=== PATIENT | male | born 1960 | race Caucasian/White ===

== ENCOUNTER 2020-06-26 16:16 | Outpatient (REF) | payer BC, SELFPAY ==
--- NOTE | ~2020-06-26 | XR_ITS ---
EXAMINATION: XR FOOT, LEFT CLINICAL INFORMATION: Heel pain. COMPARISON: None TECHNIQUE: AP, lateral, and oblique views of the left foot. FINDINGS: Small plantar calcaneal spur. Small distal Achilles tendon calcification/insertional enthesopathy. No acute calcaneal fractures seen. On the AP projections, there is a curvilinear sclerosis in the subchondral region of the 1st metatarsal head. This of uncertain etiology, could be related to overlapping densities versus other etiologies such as avascular necrosis. 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 No acute fractures otherwise seen. XR/XR foot LT min 3V IMPRESSION: 1. Calcaneal spurring. 2. Curvilinear sclerosis in the subchondral region of the 1st metatarsal head. This could be related to sequela overlapping densities versus other etiology such as avascular necrosis. Further evaluation with CT or MRI could be considered. 3. 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
== END 2020-06-26 16:17 | disposition home or self-care (01) ==
LOC: HO.XRAY 16:16
PROVIDERS: PCP Internal Medicine; Visit Provider Internal Medicine
DX: M79.671 Pain in right foot (principal)
CPT/HCPCS: 73630

== ENCOUNTER 2021-01-14 11:26 | Outpatient (REF) | payer BC, SELFPAY ==
[2021-01-14 11:37] LABS: MANUAL DIFF FLAG NO
[2021-01-14 12:13] LABS: Basophils Percent Auto 0.5 % (0-2); Eosinophils Absolute Auto 0.2 X10*3/uL (0.0-0.4); Eosinophils Percent Auto 2.3 % (0-4); Hemoglobin 16.2 g/dl (14.0-18.0); Imm Gran Abs Auto 0.02 X10*3/uL (0.00-0.03); Imm Gran Pct Auto 0.3 % (0.0-0.4); Lymphocytes Absolute Auto 2.4 X10*3/uL (1.2-4.9); Lymphocytes Percent Auto 35.6 % (20-40); Mean Corpuscular HGB Conc 33.1 g/dl (31.0-36.0); Mean Corpuscular Hemoglobin 30.7 pg (27.0-33.0); Mean Corpuscular Volume 92.8 fL (80.0-98.0); Mean Platelet Volume 10.1 fL (9.4-12.4); Monocytes Absolute Auto 0.8 X10*3/uL (0.1-1.2); Monocytes Percent Auto 11.7 % (2-11); Neutrophils Absolute Auto 3.3 x10*3/uL (2.0-8.3); Neutrophils Percent Auto 49.6 % (45-73); Platelet Count 313 X10*3/uL (160-400); Red Blood Count 5.28 X10*6/uL (4.60-5.80); Red Cell Distribution Width 11.9 % (11.0-16.0); White Blood Count 6.7 X10*3/uL (4.8-10.8)
[2021-01-14 13:03] LABS: Alanine Aminotransferase 24 U/L (0-40); Albumin Level 4.5 g/dL (3.5-5.0); Alkaline Phosphatase 59 U/L (39-117); Anion Gap 12 (12-20); Aspartate Amino Transferase 23 U/L (5-37); Bilirubin Total 1.8 mg/dL (0.0-1.0); Blood Urea Nitrogen 21 mg/dL (9-16); Calcium 9.5 mg/dL (8.4-10.2); Carbon Dioxide 29 mmol/L (22-29); Chloride 105 mmol/L (96-108); Cholesterol 169 mg/dL; Estimated Glomerular Filt Rate > 60; Glucose Fasting 96 mg/dL (60-99); HDL Cholesterol 54 mg/dL; LDL Cholesterol Calculated 95 mg/dl; Potassium 4.8 mmol/L (3.3-5.1); Sodium 141 mmol/L (135-145); Total Protein 7.1 g/dL (6.5-8.0); Triglycerides 101 mg/dL
[2021-01-14 13:07] LABS: Prostate Specific Antigen 0.41 ng/mL (<0.05-4.0)
== END 2021-01-14 11:27 | disposition home or self-care (01) ==
LOC: HO.LAB 11:26
PROVIDERS: PCP Internal Medicine; Visit Provider Internal Medicine
DX: Z00.00 Encounter for general adult medical examination without abnormal findings (principal); Z12.5 Encounter for screening for malignant neoplasm of prostate
CPT/HCPCS: 36415; 80053; 80061; 84153; 85025

== ENCOUNTER 2021-05-18 10:22 | Outpatient (REF) | payer BC, SELFPAY ==
--- NOTE | ~2021-05-18 | XR_ITS ---
EXAMINATION: XR KNEE, RIGHT CLINICAL INFORMATION: Right knee pain. COMPARISON: 07/06/2007 and 07/02/2007. TECHNIQUE: 4 views of the right knee. FINDINGS: There is no evidence of acute fracture or dislocation of the right knee. There is a 5 x 3 mm calcific density seen about the peripheral aspect of the medial joint line posteriorly and may represent a loose body. No definite donor site is appreciated. The medial and lateral joint space compartments appear maintained. There is some narrowing of the medial facet joint of the patellofemoral joint. There are changes of [place]-Schlatter's disease seen about the tibial tubercle. There is spurring about the patellofemoral joint with a small right knee effusion. Patella spurs at insertion of the quadriceps tendon is noted. XR/XR knee RT 4V IMPRESSION: Probable loose body posterior medial joint space. Patellofemoral joint degenerative change primarily involving the medial facet. Small knee effusion.
--- NOTE | ~2021-05-18 | US_ITS ---
EXAMINATION: ULTRASOUND EXTREMITY NONVASCULAR CLINICAL INFORMATION: Fullness behind right knee. COMPARISON: None. TECHNIQUE: Limited ultrasound imaging through the right posterior knee was performed. FINDINGS: There is anechoic fluid seen posterior to right popliteal fossa measuring 3.6 x 1.9 x 1.4 cm. Anechoic area also seen in the right suprapatellar space extending to the lateral joint space with echogenic debris suggestive of complex fluid. US/US extremity nonvascular IMPRESSION: Popliteal fossa cyst and suprapatellar complex effusion.
== END 2021-05-18 10:23 | disposition home or self-care (01) ==
LOC: HO.US 10:22
PROVIDERS: PCP Internal Medicine; Visit Provider Internal Medicine
DX: R29.898 Other symptoms and signs involving the musculoskeletal system (principal); M25.561 Pain in right knee
CPT/HCPCS: 73564; 76882

== ENCOUNTER 2021-05-18 10:28 | Outpatient (REF) | payer BC, SELFPAY | END 2021-05-18 10:29 | disposition home or self-care (01) | LOC: HO.US 10:28 | PROVIDERS: PCP Internal Medicine; Visit Provider Internal Medicine | DX: Z13.89 Encounter for screening for other disorder (principal) ==

== ENCOUNTER → 2021-05-31 12:24 | Outpatient (BNVA) | payer BC, SELFPAY | PROVIDERS: PCP Internal Medicine; Visit Provider Physician Assistant | DX: M17.11 Unilateral primary osteoarthritis, right knee (principal) | CPT/HCPCS: 20610; J1040 ==

== ENCOUNTER → 2021-09-15 10:39 | Outpatient (REF) | payer BC, SELFPAY | LOC: HO.SL 10:39 | PROVIDERS: PCP Internal Medicine; Visit Provider Internal Medicine | DX: R06.83 Snoring (principal) | CPT/HCPCS: 95806 ==

== ENCOUNTER 2022-01-05 09:09 | Outpatient (REF) | payer BC, SELFPAY ==
[2022-01-05 09:32] LABS: MANUAL DIFF FLAG NO
[2022-01-05 10:15] LABS: Basophils Percent Auto 0.4 % (0-2); Eosinophils Absolute Auto 0.1 X10*3/uL (0.0-0.4); Eosinophils Percent Auto 1.5 % (0-4); Hematocrit 46.5 % (42.0-52.0); Hemoglobin 15.3 g/dl (14.0-18.0); Imm Gran Abs Auto 0.03 X10*3/uL (0.00-0.03); Imm Gran Pct Auto 0.4 % (0.0-0.4); Lymphocytes Absolute Auto 2.4 X10*3/uL (1.2-4.9); Lymphocytes Percent Auto 33.7 % (20-40); Mean Corpuscular HGB Conc 32.9 g/dl (31.0-36.0); Mean Corpuscular Hemoglobin 30.1 pg (27.0-33.0); Mean Corpuscular Volume 91.5 fL (80.0-98.0); Mean Platelet Volume 9.8 fL (9.4-12.4); Monocytes Absolute Auto 0.8 X10*3/uL (0.1-1.2); Monocytes Percent Auto 10.4 % (2-11); Neutrophils Absolute Auto 3.9 x10*3/uL (2.0-8.3); Neutrophils Percent Auto 53.6 % (45-73); Platelet Count 297 X10*3/uL (160-400); Red Blood Count 5.08 X10*6/uL (4.60-5.80); White Blood Count 7.2 X10*3/uL (4.8-10.8)
[2022-01-05 10:30] LABS: Alanine Aminotransferase 21 U/L (0-40); Albumin Level 4.4 g/dL (3.5-5.0); Alkaline Phosphatase 61 U/L (39-117); Anion Gap 12 (12-20); Aspartate Amino Transferase 23 U/L (5-37); Bilirubin Total 1.8 mg/dL (0.0-1.0); Blood Urea Nitrogen 12 mg/dL (9-16); Calcium 9.6 mg/dL (8.4-10.2); Carbon Dioxide 29 mmol/L (22-29); Chloride 104 mmol/L (96-108); Cholesterol 157 mg/dL; Estimated Glomerular Filt Rate > 60; Glucose Random 95 mg/dL (60-115); HDL Cholesterol 48 mg/dL; LDL Cholesterol Calculated 80 mg/dl; Potassium 4.3 mmol/L (3.3-5.1); Sodium 141 mmol/L (135-145); Total Protein 6.9 g/dL (6.5-8.0); Triglycerides 146 mg/dL
[2022-01-05 11:04] LABS: Prostate Specific Antigen 0.35 ng/mL (<0.05-4.0)
== END 2022-01-05 09:10 | disposition home or self-care (01) ==
LOC: HO.LAB 09:09
PROVIDERS: PCP Internal Medicine; Visit Provider Internal Medicine
DX: Z00.00 Encounter for general adult medical examination without abnormal findings (principal); Z12.5 Encounter for screening for malignant neoplasm of prostate
CPT/HCPCS: 36415; 80053; 80061; 84153; 85025

== ENCOUNTER 2022-05-11 13:09 | Outpatient (REF) | payer BC, SELFPAY | END 2022-05-11 13:10 | disposition home or self-care (01) | LOC: HO.LNP 13:09 | PROVIDERS: PCP Internal Medicine; Referring Provider Internal Medicine; Visit Provider Surgery | DX: L72.11 Pilar cyst (principal) | CPT/HCPCS: 11442; 88304 ==

== ENCOUNTER → 2022-05-19 09:21 | Outpatient (BNVA) | payer BC, SELFPAY | PROVIDERS: PCP Internal Medicine; Visit Provider Surgery | DX: Z13.89 Encounter for screening for other disorder (principal) ==

== ENCOUNTER 2022-05-30 07:03 | Day surgery (SDC) | payer BC, SELFPAY ==
[2022-05-30 07:08] VITALS: BMI 28.1
[2022-05-30 07:40] VITALS: BP 126/74; PULSE 66; RESP 20; TEMP 36.1; O2SAT 98
--- NOTE | 2022-05-30 07:50 | PC.NURSE ---
no meds taken today
[2022-05-30] MEDS: Lactated Ringers 1,000 ML 50 ML IVCONT (08:04)
--- NOTE | 2022-05-30 08:05 | HO.ANESPROP2 ---
HPI - Anesthesia Eval Consult details Narrative: for screening colonoscopy PMFSH Active Problems Active Problems: All Active Problems (Updated 05/30/22 @ 07:50 by Karon Carpneter RN) Osteoarthritis of right knee (Acute) Pilar cyst of scalp (Acute) Past Medical History Medical History (Updated 05/27/22 @ 11:09 by Yudith England RN) Deviated nasal septum (~2012) High cholesterol Plantar fasciitis Symptomatic varicose veins Family History Family history of problems with anesthesia: No Surgical History Surgical History (Updated 05/30/22 @ 07:50 by Karon Carpenter RN) H/O excision of dermoid cyst (05/11/22) Hx of colonoscopy Hx of varicose vein ligation and stripping History of Problems with Anesthesia: No Social History Social History Patient Tobacco Use Status: Never used Tobacco Are you DNR?: No Advance Directives: No Advance Directives Information Provided: Yes Nutrition Risks: No Nutritional Risk Current occupational status: employed 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 Meds Allergies Allergy/AdvReac Type Severity Reaction Status Date / Time No Known Allergies Allergy Verified 05/30/22 08:00 Active Medications: Current Medications Lactated Ringer's (Lr) 1,000 mls @ 50 mls/hr IVCONT .Q20H BERNICE Last Admin: 05/30/22 08:04 Dose: 50 mls/hr Sodium Biphosphate/Sodium Phosphate (Sodium Phosphate,[place]-Dibasic 133 Ml Enema) 133 ml OK ONCE PRN PRN Reason: Poor Colonoscopy Prep Results Home Medications Medication Instructions Recorded Confirmed Last Taken Type rosuvastatin 5 mg tablet 5 mg PO DAILY 05/31/21 05/28/22 History turmeric 400 mg capsule mg PO 05/31/21 05/28/22 History ergocalciferol (vitamin D2) 400 50 mcg PO DAILY 05/30/22 05/30/22 05/28/22 History unit capsule Exam Exam Date and Time: May 30, 2022 0805 Height,Weight and Vital Signs: Height 6 ft 0.25 in Weight 94.801 kg Last Vital Signs Temp 97 F 05/30/22 07:40 Pulse 66 05/30/22 07:40 Resp 20 05/30/22 07:40 BP 126/74 05/30/22 07:40 Pulse Ox 98 05/30/22 07:40 O2 Del Method Room Air 05/30/22 07:40 Airway Mallampati Class: II TM Dist: >3cm Neck ROM: Full Heart: rrr Lungs: cta Assessment and Plan Assessment Anesthesia Assessment: Anesthesia Plan Discussed and Chart Reviewed Final Anesthetic Review Family History of Problems with Anesthesia: No History of Problems with Anesthesia: No NPO: Yes ASA Class: II Final Preanesthetic Review: No Changes in Pt Med Stat, Meds/Allgs Chart Reviewed, Consent Obtained/Reviewed and Anes Risks/Benef Reviewed Patient Risk: Low Procedure Risk: Low Anesthetic Plan Anesthetic Plan: MAC: Disposition: Standard PACU
--- NOTE | 2022-05-30 09:44 | P.BOP_ITS ---
Brief Operative Note Date of Service: 05/30/22 Pre-op diagnosis: Screening Post-op diagnosis: other (Diverticulosis) Procedure: Colonoscopy to cecum and TI Surgeon: Evin Rodarte Anesthesia: MAC Was an [facility] used for this Procedure?: No Estimated blood loss (mL): 0 Pathology: none sent Condition: stable Disposition: PACU
[2022-05-30 09:45] VITALS: BP 105/56; PULSE 59; RESP 17; TEMP 36.6; O2SAT 96
[2022-05-30 10:00] VITALS: BP 137/81; PULSE 64; RESP 16; TEMP 36.6; O2SAT 97
--- NOTE | 2022-05-30 12:14 | OP_ITS ---
DATE OF SERVICE: 05/30/2022 SURGEON: Evin Rodarte MD INDICATIONS: The patient presents for evaluation of personal history of tubular adenomas of the colon and colorectal cancer screening. Full consent has been obtained from him for this, including risks of bleeding and perforation. PREOPERATIVE DIAGNOSIS: POSTOPERATIVE DIAGNOSIS: PROCEDURE PERFORMED: Colonoscopy to the cecum and terminal ileum. ESTIMATED BLOOD LOSS: COMPLICATIONS: ANESTHESIA: Monitored anesthesia care. ASSISTANTS: SPECIMENS: PREOPERATIVE DIAGNOSES: Colorectal cancer screening and personal history of tubular adenomas of the colon. POSTOPERATIVE DIAGNOSES: Colorectal cancer screening and personal history of tubular adenomas of the colon, mild sigmoid diverticulosis and internal hemorrhoids. DESCRIPTION OF PROCEDURE: The patient was placed in the left lateral decubitus position. The digital rectal exam revealed no abnormalities. The Olympus video pediatric colonoscope was entered into the rectum and advanced easily to the cecum. Once in the cecum, I did identify normal-appearing cecal pouch with appendiceal orifice and normal-appearing ileocecal valve. The terminal ileum was cannulated and appeared normal. The scope was withdrawn back in the colon. The entire cecum and ileocecal valve appeared normal. The scope was slowly withdrawn assessing all mucosal surface carefully. Preparation was excellent. I did not visualize any signs of polyps, colitis nor angiodysplasia. There was a mild amount of sigmoid diverticulosis. In the rectum, the scope was retroflexed visualizing internal hemorrhoids, but no other pathology. The rectal mucosa appeared normal. Scope was straightened and withdrawn from the patient. He tolerated the procedure well and was returned to the recovery area in stable condition. IMPRESSION: 1. Diverticulosis. 2. Internal hemorrhoids. PLAN: I recommend repeat colonoscopy in 5 years for further screening and surveillance. He would otherwise see me on a p.r.n. basis. MD SHEILA Meade/NATALIYA / [id number]
== END 2022-05-30 10:26 | disposition home or self-care (01) ==
PROVIDERS: PCP Internal Medicine; Visit Provider Internal Medicine
PROC: 0DJD8ZZ Inspection of Lower Intestinal Tract, Via Natural or Artificial Opening Endoscopic (ICD-10-PCS; CPT 45378; principal; 2022-05-30 08:40)
DX: Z12.11 Encounter for screening for malignant neoplasm of colon (principal); Z86.010 Personal history of colon polyps; K57.30 Diverticulosis of large intestine without perforation or abscess without bleeding; K64.8 Other hemorrhoids; E78.5 Hyperlipidemia, unspecified; M72.2 Plantar fascial fibromatosis; Z79.899 Other long term (current) drug therapy; Z87.891 Personal history of nicotine dependence
CPT/HCPCS: 45378

== ENCOUNTER 2022-10-03 14:05 | Outpatient (REF) | payer BC, SELFPAY | END 2022-10-03 14:06 | disposition home or self-care (01) | LOC: HO.LNP 14:05 | PROVIDERS: PCP Internal Medicine; Visit Provider Surgery | DX: L72.8 Other follicular cysts of the skin and subcutaneous tissue (principal); Z79.899 Other long term (current) drug therapy | CPT/HCPCS: 11422; 88304 ==

== ENCOUNTER 2022-10-03 14:05 | Outpatient (AMB) | payer BC, SELFPAY ==
--- NOTE | 2022-10-03 14:12 | MHC.OFFVIS ---
Intake Vital Signs 10/03/22 14:13 Weight 197 lb BP 137/71 Blood Pressure Location Rt brachial Position Sitting Pulse 67 Intake Visit Reasons: Cyst on Rt side of head Intake Note: Patient c/o cyst on Rt scalp. Present for a few months. Has been enlarging. Denies bleeding or oozing. Community Development Officer Required: No Accompanied by: Self / Same As Patient Allergies No Known Allergies Allergy (Verified 10/03/22 14:14) Medication List - Last Reconciled 10/03/22 by Christopher Perdue MD ergocalciferol (vitamin D2) 50 mcg PO DAILY rosuvastatin 5 mg PO DAILY turmeric mg PO HPI HPI Comments History of Present Illness Details This is a patient whom I know from the past who presents here with a new growth on the right bahai area. It is increasing in size, and become more symptomatic. He wished to have removed. He has had Pilar cyst lesion excised the scalp excise several months ago. 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 Office Procedures Excision Details: Risks, benefits, alternatives of excision of right bahai scalp lesion were reviewed with the patient and included but not limited to bleeding, infection, recurrence, numbness, pain, scarring the patient was to proceed. All questions were answered. Patient underwent 1% lidocaine and Betadine prep and uneventful tangential excision of approximately 1 x 2 cm exophytic growth. Specimen sent to pathology. Wound base cauterized with silver nitrate, secured hemostasis, and bacitracin applied. Procedure was Well tolerated. [id number] scalp/neck/hands/feet/genitalia 1.1cm-2cm Procedure code (CPT) selection complete Office Meds lidocaine-epinephrine 1 %-1:100,000 Performing Provider: Christopher Perdue MD Administered by: Christopher Perdue MD on 10/03/22 14:26 Dose Route Admin Location Lot Number Expiration Date NDC Chief Security Officer 10 mL Infiltration Assessment & Plan Assessment & Plan (1) Skin lesion: Code(s): L98.9 - Disorder of the skin and subcutaneous tissue, unspecified Plan: Patient has been given local instructions including bacitracin to wound each day, and will see me as directed or p.r.n. Orders: Orders AMB Excision Today L98.9 - Disorder of the skin and subcutaneous tissue, unspecified Coding Level of Care Code Est Pt Level 3 (78477) Diagnoses Skin lesion L98.9 CPT Codes Scalp/Neck/Hands/Feet/Genetalia - CPT: 37251-[id number] scalp/neck/hands/feet/genitalia 1.1cm-2cm ([id number])
[2022-10-03 14:13] VITALS: BP 137/71; PULSE 67
== END 2022-10-03 14:26 | disposition home or self-care (01) ==
PROVIDERS: PCP Internal Medicine; Visit Provider Surgery
DX: L82.0 Inflamed seborrheic keratosis (principal)
CPT/HCPCS: 11422; 99213

== ENCOUNTER 2022-10-11 14:24 | Outpatient (AMB) | payer BC, SELFPAY ==
--- NOTE | 2022-10-11 14:25 | A.OFFVIS_ITS ---
Intake Vital Signs 10/11/22 14:37 Weight 196 lb BP 125/66 Blood Pressure Location Rt brachial Position Sitting Pulse 70 Intake Visit Reasons: Cyst on Rt side of head, 1 wk follow up Intake Note: This patient presents for a one week follow-up for cyst on right side of head. Patient denies complaints at this time. Court Worker Required: No Accompanied by: Self / Same As Patient Allergies No Known Allergies Allergy (Verified 10/11/22 14:37) HPI HPI Comments History of Present Illness Details Patient presents for follow-up. He has no wound issues or complaints. Pathology is benign. 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 Assessment & Plan Assessment & Plan (1) Skin lesion: Code(s): L98.9 - Disorder of the skin and subcutaneous tissue, unspecified Plan Patient has been given local instructions, and will follow-up p.r.n. Coding Level of Care Code Global (65660) Diagnoses Skin lesion L98.9
[2022-10-11 14:37] VITALS: BP 125/66; PULSE 70
== END 2022-10-11 14:42 | disposition home or self-care (01) ==
PROVIDERS: PCP Internal Medicine; Visit Provider Surgery
DX: L98.9 Disorder of the skin and subcutaneous tissue, unspecified (principal)
CPT/HCPCS: 99024

== ENCOUNTER → 2022-10-11 14:24 | Outpatient (BNVA) | payer BC, SELFPAY | PROVIDERS: PCP Internal Medicine; Visit Provider Surgery ==

== ENCOUNTER 2022-10-24 11:29 | Outpatient (REF) | payer BC, SELFPAY ==
[2022-10-24 13:36] LABS: MANUAL DIFF FLAG NO
[2022-10-24 13:50] LABS: Basophils Absolute Auto 0.1 X10*3/uL (0.0-0.2); Basophils Percent Auto 0.6 % (0-2); Eosinophils Absolute Auto 0.3 X10*3/uL (0.0-0.4); Eosinophils Percent Auto 3.3 % (0-4); Hematocrit 47.7 % (42.0-52.0); Hemoglobin 15.7 g/dl (14.0-18.0); Imm Gran Abs Auto 0.06 X10*3/uL (0.00-0.03); Imm Gran Pct Auto 0.8 % (0.0-0.4); Lymphocytes Absolute Auto 2.3 X10*3/uL (1.2-4.9); Lymphocytes Percent Auto 29.7 % (20-40); Mean Corpuscular HGB Conc 32.9 g/dl (31.0-36.0); Mean Corpuscular Hemoglobin 30.7 pg (27.0-33.0); Mean Corpuscular Volume 93.2 fL (80.0-98.0); Mean Platelet Volume 10.3 fL (9.4-12.4); Monocytes Absolute Auto 0.9 X10*3/uL (0.1-1.2); Monocytes Percent Auto 11.1 % (2-11); Neutrophils Absolute Auto 4.3 x10*3/uL (2.0-8.3); Neutrophils Percent Auto 54.5 % (45-73); Platelet Count 317 X10*3/uL (160-400); Red Blood Count 5.12 X10*6/uL (4.60-5.80); Red Cell Distribution Width 12.2 % (11.0-16.0); White Blood Count 7.9 X10*3/uL (4.8-10.8)
[2022-10-24 14:11] LABS: Alanine Aminotransferase 30 U/L (0-40); Albumin Level 4.4 g/dL (3.5-5.0); Alkaline Phosphatase 60 U/L (39-117); Anion Gap 12 (12-20); Aspartate Amino Transferase 23 U/L (5-37); Bilirubin Total 1.7 mg/dL (0.0-1.0); Blood Urea Nitrogen 13 mg/dL (9-16); C Reactive Protein < 0.10 mg/dL (< or = 0.50); Calcium 9.6 mg/dL (8.4-10.2); Carbon Dioxide 28 mmol/L (22-29); Chloride 104 mmol/L (96-108); Estimated Glomerular Filt Rate > 60; Glucose Random 85 mg/dL (60-115); Potassium 3.7 mmol/L (3.3-5.1); Sodium 140 mmol/L (135-145)
[2022-10-24 14:28] LABS: Vitamin B12 410 pg/mL (200-900)
[2022-10-24 14:33] LABS: Thyroid Stimulating Hormone 1.03 uIU/mL (0.32-4.0)
== END 2022-10-24 11:30 | disposition home or self-care (01) ==
LOC: HO.10HDL 11:29
PROVIDERS: Visit Provider Internal Medicine
DX: R21 Rash and other nonspecific skin eruption (principal); R53.83 Other fatigue
CPT/HCPCS: 36415; 80053; 82607; 84443; 85025; 86140

== ENCOUNTER 2022-12-16 10:15 | Outpatient (REF) | payer BC, SELFPAY ==
[2022-12-16 10:37] LABS: MANUAL DIFF FLAG NO
[2022-12-16 11:23] LABS: Basophils Percent Auto 0.5 % (0-2); Eosinophils Absolute Auto 0.1 X10*3/uL (0.0-0.4); Hematocrit 45.6 % (42.0-52.0); Hemoglobin 15.2 g/dl (14.0-18.0); Imm Gran Abs Auto 0.02 X10*3/uL (0.00-0.03); Imm Gran Pct Auto 0.3 % (0.0-0.4); Lymphocytes Absolute Auto 2.3 X10*3/uL (1.2-4.9); Lymphocytes Percent Auto 34.9 % (20-40); Mean Corpuscular HGB Conc 33.3 g/dl (31.0-36.0); Mean Corpuscular Volume 92.9 fL (80.0-98.0); Mean Platelet Volume 9.6 fL (9.4-12.4); Monocytes Absolute Auto 0.7 X10*3/uL (0.1-1.2); Monocytes Percent Auto 11.1 % (2-11); Neutrophils Absolute Auto 3.3 x10*3/uL (2.0-8.3); Neutrophils Percent Auto 51.2 % (45-73); Platelet Count 315 X10*3/uL (160-400); Red Blood Count 4.91 X10*6/uL (4.60-5.80); Red Cell Distribution Width 11.9 % (11.0-16.0); White Blood Count 6.5 X10*3/uL (4.8-10.8)
[2022-12-16 11:48] LABS: Appearance Urine Clear; Color Urine Yellow; Glucose Urine UA Negative (Negative); Leukocyte Esterase Urine Negative (Negative); Nitrite Urine Negative (Negative); Specific Gravity - Urine <= 1.005 (1.005-1.025); Urine Blood Negative (Negative); Urine Ketones Negative (Negative); Urine Protein Negative (Neg-Trace)
[2022-12-16 12:19] LABS: Alanine Aminotransferase 19 U/L (0-40); Albumin Level 4.4 g/dL (3.5-5.0); Alkaline Phosphatase 61 U/L (39-117); Anion Gap 15 (12-20); Aspartate Amino Transferase 24 U/L (5-37); Bilirubin Total 1.5 mg/dL (0.0-1.0); Blood Urea Nitrogen 11 mg/dL (9-16); Calcium 9.6 mg/dL (8.4-10.2); Carbon Dioxide 27 mmol/L (22-29); Chloride 102 mmol/L (96-108); Cholesterol 152 mg/dL (<200); Estimated Glomerular Filt Rate > 60; Glucose Fasting 97 mg/dL (60-99); HDL Cholesterol 45 mg/dL (>40); LDL Cholesterol Calculated 93 mg/dL (<100); Potassium 3.9 mmol/L (3.3-5.1); Sodium 140 mmol/L (135-145); Triglycerides 70 mg/dL (<150)
[2022-12-16 12:29] LABS: Prostate Specific Antigen Scr 0.42 ng/mL (<0.05-4.0)
== END 2022-12-16 10:16 | disposition home or self-care (01) ==
LOC: HO.LAB 10:15
PROVIDERS: PCP Internal Medicine; Visit Provider Internal Medicine
DX: Z12.5 Encounter for screening for malignant neoplasm of prostate (principal); E78.00 Pure hypercholesterolemia, unspecified; R35.1 Nocturia
CPT/HCPCS: 36415; 80053; 80061; 81003; 84153; 85025

== ENCOUNTER 2023-12-16 07:26 | Outpatient (REF) | payer BC, SELFPAY ==
[2023-12-16 07:51] LABS: MANUAL DIFF FLAG NO
[2023-12-16 08:01] LABS: Basophils Percent Auto 0.4 % (0-2); Eosinophils Absolute Auto 0.1 X10*3/uL (0.0-0.4); Eosinophils Percent Auto 1.7 % (0-4); Hematocrit 45.9 % (42.0-52.0); Hemoglobin 15.5 g/dl (14.0-18.0); Imm Gran Abs Auto 0.01 X10*3/uL (0.00-0.03); Imm Gran Pct Auto 0.1 % (0.0-0.4); Lymphocytes Absolute Auto 2.3 X10*3/uL (1.2-4.9); Lymphocytes Percent Auto 31.1 % (20-40); Mean Corpuscular HGB Conc 33.8 g/dl (31.0-36.0); Mean Corpuscular Hemoglobin 31.1 pg (27.0-33.0); Mean Platelet Volume 9.8 fL (9.4-12.4); Monocytes Absolute Auto 0.7 X10*3/uL (0.1-1.2); Monocytes Percent Auto 9.7 % (2-11); Neutrophils Absolute Auto 4.2 x10*3/uL (2.0-8.3); Platelet Count 286 X10*3/uL (160-400); Red Blood Count 4.99 X10*6/uL (4.60-5.80); Red Cell Distribution Width 11.9 % (11.0-16.0); White Blood Count 7.5 X10*3/uL (4.8-10.8)
[2023-12-16 08:40] LABS: Appearance Urine Clear; Color Urine Yellow; Glucose Urine UA Negative (Negative); Leukocyte Esterase Urine Negative (Negative); Nitrite Urine Negative (Negative); PH 6.5 (5.0-9.0); Specific Gravity - Urine 1.025 (1.005-1.025); Urine Blood Negative (Negative); Urine Ketones Negative (Negative); Urine Protein Trace mg/dL (Neg-Trace)
[2023-12-16 09:04] LABS: Alanine Aminotransferase 19 U/L (0-40); Albumin Level 4.4 g/dL (3.5-5.0); Alkaline Phosphatase 53 U/L (39-117); Anion Gap 9 (12-20); Aspartate Amino Transferase 23 U/L (5-37); Bilirubin Total 1.6 mg/dL (0.0-1.0); Blood Urea Nitrogen 14 mg/dL (9-16); Calcium 9.9 mg/dL (8.4-10.2); Carbon Dioxide 31 mmol/L (22-29); Chloride 107 mmol/L (96-108); Cholesterol 127 mg/dL (<200); Estimated Glomerular Filt Rate > 60; Glucose Fasting 109 mg/dL (60-99); HDL Cholesterol 38 mg/dL (>40); LDL Cholesterol Calculated 74 mg/dL (<100); Potassium 4.7 mmol/L (3.3-5.1); Sodium 142 mmol/L (135-145); Total Protein 6.9 g/dL (6.5-8.0); Triglycerides 79 mg/dL (<150); Vitamin D 25-OH Total 44.6 ng/mL (>30)
== END 2023-12-16 07:27 | disposition home or self-care (01) ==
LOC: HO.LAB 07:26
PROVIDERS: PCP Internal Medicine; Visit Provider Internal Medicine
DX: E78.00 Pure hypercholesterolemia, unspecified (principal); R35.1 Nocturia; E55.9 Vitamin D deficiency, unspecified; Z12.5 Encounter for screening for malignant neoplasm of prostate
CPT/HCPCS: 36415; 80053; 80061; 81003; 82306; 84153; 85025; 87086

== ENCOUNTER → 2024-02-23 19:30 | Outpatient (REF) | payer BC, SELFPAY | LOC: HO.SL 19:30 | PROVIDERS: PCP Internal Medicine; Visit Provider Internal Medicine | DX: Z13.89 Encounter for screening for other disorder (principal) ==

== ENCOUNTER 2024-08-12 09:54 | Outpatient (AMB) | payer BC, SELFPAY ==
--- NOTE | 2024-08-12 09:58 | A.OFFPC_ITS ---
Vital Signs 08/12/24 10:02 Height 6 ft 1 in Weight 85.729 kg BMI 24.9 BP 128/76 Respiration 14 Pulse 68 Pulse Source Pulse Oximeter Temp 97.5 F Temp Source Temporal Artery Scan Pulse Oximetry (%) 98 Oxygen Delivery Method Room Air Intake Visit Reasons: Annual Disability Examiner Required: No Accompanied by: Self / Same As Patient Allergies No Known Allergies Allergy (Verified 08/12/24 10:02) Medication List - Last Reconciled 08/12/24 by KYLE Molina ergocalciferol (vitamin D2) 50 mcg PO DAILY psyllium husk (Metamucil) 1 tbsp PO DAILY rosuvastatin 5 mg PO DAILY tamsulosin 0.4 mg PO BEDTIME turmeric mg PO HPI HPI Comments History of Present Illness Details 64-year-old male with history of BPH, va ricose veins, hypercholesterolemia, vitamin-D deficiency and history of colon polyps presents to the office today for annual physical exam as well as management of chronic conditions. Hyperlipidemia-taking rosuvastatin. BPH- not currently taking medications. However, continues to experience nocturi a, daytime polyuria, and weak urinary stream Snoring- negative sleep study Hx dermoid cysts- excised right posterior scalp Concerns: Bilateral upper extremitiy paresthesias. Reports history of repetitive motions including post driving. Reports pain into the bilateral shoulders with paresthesias to the hands bilaterally. No weakness. Most notable at night and improves when resting arms on pillows. He does have known history of degenerative disc disease at C5-6 and C6-7 noted on XR in 2017. He is also reporting diarrhea following cheese consumption. He has not have similar symptoms with other dairy products. No abdominal pain, nausea, vomiting, melena, hematochezia. Health Maintenance: Last screening colonoscopy 05/30/2022- history of tubular adenoma, next due 05/2027 Dr. Rodarte Last PSA - 0.40 ROS: General: No fevers, malaise, unintentional weight loss HEENT: No blurred vision, diplopia. No sore throat, nasal congestion, rhinorrhea, sinus pain, ear pain Neck: no adenopathy Cardiovascular: No chest pain, palpitations, or leg edema Respiratory: No shortness of breath, wheezing, cough GI: No abdominal pain, nausea, vomiting, diarrhea, constipation, melena, hematochezia. No dysphagia : No dysuria, hematuria. see hpi MSK: No myalgia, back pain. See hpi Neuro: No headaches, weakness. see hpi Skin: No rashes or lesions EXAM: EXAM: Constitutional - Awake and Alert, No apparent distress Eyes - PERRLA, EOMI. Anicteric Nose- septum midline, nares clear, no sinus tenderness Mouth/throat- mucosa moist, tongue and uvula midline, no erythema/edema or tonsillar adenopathy. Posterior cobblestoning noted Neck-trachea midline, thyroid symmetric without palpable nodules, no adenopathy Cardiovascular - S1S2, RRR, No edema Respiratory - Normal lung expansion, Normal respiratory effort, No respiratory distress, CTA bilaterally Gastrointestinal - NT / ND; +BS; No rebound or guarding - No CVA tenderness Extremities - no calf tenderness bilaterally, no swelling Musculoskeletal - Normal inspection, normal ROM Skin - Warm/Dry Neurological - Alert & oriented x3, CN II-XII in tact, 5/5 strength BUE and BLE Psychological - Appropriate affect [facility] Medical History (Updated 08/12/24 @ 10:45 by KYLE Molina) BPH (benign prostatic hyperplasia) DDD (degenerative disc disease), cervical Symptomatic varicose veins Plantar fasciitis Deviated nasal septum (~2012) High cholesterol Surgical History (Updated 08/09/24 @ 15:49 by Jessy Esposito) Hx of varicose vein ligation and stripping Hx of colonoscopy (~05/30/22) H/O excision of dermoid cyst (05/11/22) Family History (Updated 08/12/24 @ 10:16 by KYLE Molina) Father CAD (coronary artery disease) DC (myocardial infarction) Brother CAD (coronary artery disease) DC (myocardial infarction) Social History Patient Tobacco Use Status: Never used Tobacco Current occupational status: employed 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 1. Little interest or pleasure in doing things: not at all 2. Feeling down, depressed, or hopeless: several days 3. Trouble falling or staying asleep, or sleeping too much: nearly every day 4. Feeling tired or having little energy: several days 5. Poor appetite or overeating: not at all 6. Feeling bad about yourself - or that you are a failure or have let yourself or your family down: several days 7. Trouble concentrating on things, such as reading the newspaper or watching television: not at all 8. Moving or speaking so slowly that other people could have noticed. Or the opposite - being so fidgety or restless that you have been moving around a lot m ore than usual: not at all 9. Thoughts that you would be better off or of hurting yourself in some way: not at all Total score: 6 Source: Developed by Drs. Evin Voss, Kamryn Hills, Tres Gilmore and colleagues, with an educational neeraj from [employer]. Thrive Questionnaire Date Thrive assessed: 08/12/24 I am a: Patient What is your living situation today?: I have a steady place to live Within the past 12 months, did the food you bought not last and you didn't have the money to get more?: Never true Within the past 12 months, did you worry whether your food would run out before you got money to buy more?: Never true Do you have trouble paying for medicines?: No Do you have trouble getting transportation to medical appointments?: No Do you have trouble paying your heating and electricity bill?: No Do you have trouble taking care of your child, family member or friend?: No Do you have trouble with day-to-day activities such as bathing, preparing meals, shopping, managing finances, etc.?: No Are you currently unemployed and looking for a job?: No Are you interested in more education?: No Please select the resources that you would like help with: None THRIVE Score: 0 KATE-7 AMB Questionnaire KATE-7 Date KATE - 7 assessed: 08/12/24 Feeling nervous, anxious, or on edge: 0 = Not at all Not being able to stop or control worryin = Not at all Worrying too much about different things: 0 = Not at all Trouble relaxin = Not at all Being so restless that it is hard to sit still: 0 = Not at all Becoming easily annoyed or irritable: 0 = Not at all Feeling afraid as if something awful might happen: 0 = Not at all Total KATE-7 score (0-4 normal; 5-9 mild; 10-14 moderate; 15-21 severe): 0 Source: Developed by Drs. Evin Voss, Kamryn Hills, Tres Gilmore and colleagues, with an educational neeraj from [employer]. Physical exam (Primary Care) Vital Signs: Last Vital Signs Temp 97.5 F 08/12/24 10:02 Pulse 68 08/12/24 10:02 Resp 14 08/12/24 10:02 BP 128/76 08/12/24 10:02 Pulse Ox 98 08/12/24 10:02 Oxygen Delivery Method Room Air 08/12/24 10:02 BMI result Body Mass Index 24.9 Tobacco/Smoking Status: Tobacco use Status Patient Tobacco Use Status Never used Tobacco 08/12/24 09:59 Coding Level of Care Code Est Pt Level 4 (01557) New Pt Prev Care 40-64y(96448) Diagnoses Routine medical exam Z00.00 Hyperlipidemia E78.5 DDD (degenerative disc disease), cervical M50.30 Food intolerance K90.49 BPH (benign prostatic hyperplasia) N40.0 Paresthesia and pain of both upper extremities R20.2; M79.601; M79.602 Assessment & Plan Assessment & Plan (1) Routine medical exam: Code(s): Z00.00 - Encounter for general adult medical examination without abnormal findings Category: Medical Plan: Overall in good general state of health. Concerns addressed ass below. PHQ-9, Thrive, KATE-7 scales negative. (2) Hyperlipidemia: Code(s): E78.5 - Hyperlipidemia, unspecified Category: Medical Plan: Lipid panel ordered. Continue rosuvastatin. Recommend limiting saturated fats and highly processed foods. (3) DDD (degenerative disc disease), cervical: Code(s): M50.30 - Other cervical disc degeneration, unspecified cervical region Category: Medical Plan: Complicated by bilateral upper extremity paresthesias. CT cervical spine ordered (4) Food intolerance: Code(s): K90.49 - Malabsorption due to intolerance, not elsewhere classified Category: Medical Plan: No definite lactose intolerance. Can continue with elimination challenge. May also trial Lactaid. (5) BPH (benign prostatic hyperplasia): Code(s): N40.0 - Benign prostatic hyperplasia without lower urinary tract symptoms Category: Medical Plan: Uncontrolled. Trial tamsulosin 0.4 mg nightly. Last PSA within normal limits. Continue with fluid limitations especially prior to bedtime. Behavioral techniques also discussed. (6) Paresthesia and pain of both upper extremities: Code(s): R20.2 - Paresthesia of skin; M79.601 - Pain in right arm; M79.602 - Pain in left arm Category: Medical Plan: CT cervical spine ordered. Suspect symptoms related to nerve compression from degenerative disc disease. Plan to be adjusted pending results of study. TSH and vitamin B12 level also ordered Plan Routine screening labs as ordered below. Return in 6 months Continue with screening colonoscopies, PSA Continue following for annual skin exams and use sun protection Annual eye exams Wear seat belt in car Recommend regular exercise and healthy diet Orders: Orders Basic Metabolic Panel Today E78.5 - Hyperlipidemia, unspecified, Z00.00 - Encounter for general adult medical examination without abnormal findings Lipid Panel Today E78.5 - Hyperlipidemia, unspecified, Z00.00 - Encounter for general adult medical examination without abnormal findings Liver Panel Today E78.5 - Hyperlipidemia, unspecified, Z00.00 - Encounter for general adult medical examination without abnormal findings TSH reflex Free T4 Today M79.601 - Pain in right arm, M79.602 - Pain in left arm, R20.2 - Paresthesia of skin Complete Blood Count Auto Diff Today E78.5 - Hyperlipidemia, unspecified, Z00.00 - Encounter for general adult medical examination without abnormal findings Hemoglobin A1c Today E78.5 - Hyperlipidemia, unspecified, Z00.00 - Encounter for general adult medical examination without abnormal findings CT cervical spine wo IV con Today M50.30 - Other cervical disc degeneration, unspecified cervical region, M79.601 - Pain in right arm, M79.602 - Pain in left arm, R20.2 - Paresthesia of skin Vitamin B12 Today M79.601 - Pain in right arm, M79.602 - Pain in left arm, R20.2 - Paresthesia of skin Medications: New tamsulosin 0.4 mg PO BEDTIME 90 caps 1RF
[2024-08-12 10:02] VITALS: BP 128/76; PULSE 68; RESP 14; TEMP 36.4; O2SAT 98; BMI 24.9
--- OUTSIDE RECORDS SUMMARY | 2024-08-12 10:44 | XMS_ITS | Patient Health Record ---
Author Organization [facility] Address [address] [place] [address] Care Team Providers Care Facilities Clerk Name Role Phone Austin Dumont MD Primary Care Provider Gabriel Gonzalez Unavailable [phone] Allergies No Known Allergies Reason For Referral No Information Medications Medication SIG (Take, Route, Frequency, Duration) Notes Start Date End Date Status Rosuvastatin Calcium 5 MG Oral for 90 Active Vitamin D 25 MCG (1000 UT) 1 tablet Orally Once a day for 30 day(s) Active Rosuvastatin Calcium 5 MG 1 tablet Orall y Once a day for 30 day(s) Active Vitamin D Not-Taking Social History Tobacco Use: Social History Observation Description Date Details (start date - stop date) Never Smoker NA - NA Tobacco Use/Smoking Question Answer Notes Are you a: nonsmoker Additional Findings: Tobacco Non-User Ex-cigaret te smoker Alcohol Screen Question Answer Notes Did you have a drink containing alcohol in the p ast year? Yes Points 0 Interpretation Negative Tobacco use other than smoking: Question Answer Notes Are you an other tobacco user? No Plan Of Treatment No Information Insurance Providers Payer Name Payer Address Payer Phone Subscriber Number Group Number Insured Name Patient Relationship to Insured Coverage Start Date Coverage End Date [facility] [address] [place] [address] [id number] Antoinette Alicea Spouse - patient is the spouse of the insured Medical (General) History Medical History History ICD Code Arthritis Chicken pox Surgical History Surgery Date(Month/Year) Hospitalization History Reason Date(Month/Year) C- xrays 06/26/20
== END 2024-08-12 10:34 | disposition home or self-care (01) ==
LOC: HO.HMCHD 09:55
PROVIDERS: PCP Internal Medicine; Visit Provider Physician Assistant
DX: Z00.00 Encounter for general adult medical examination without abnormal findings (principal); E78.5 Hyperlipidemia, unspecified; M50.30 Other cervical disc degeneration, unspecified cervical region; K90.49 Malabsorption due to intolerance, not elsewhere classified; N40.0 Benign prostatic hyperplasia without lower urinary tract symptoms; R20.2 Paresthesia of skin; M79.601 Pain in right arm; M79.602 Pain in left arm

== ENCOUNTER 2024-08-12 10:40 | Outpatient (REF) | payer BC, SELFPAY ==
[2024-08-12 13:11] LABS: MANUAL DIFF FLAG NO
[2024-08-12 13:28] LABS: Basophils Absolute Auto 0.1 X10*3/uL (0.0-0.2); Basophils Percent Auto 0.8 % (0-2); Eosinophils Absolute Auto 0.1 X10*3/uL (0.0-0.4); Eosinophils Percent Auto 2.2 % (0-4); Hematocrit 44.2 % (42.0-52.0); Hemoglobin 14.9 g/dl (14.0-18.0); Imm Gran Abs Auto 0.01 X10*3/uL (0.00-0.03); Imm Gran Pct Auto 0.2 % (0.0-0.4); Lymphocytes Absolute Auto 2.1 X10*3/uL (1.2-4.9); Lymphocytes Percent Auto 33.2 % (20-40); Mean Corpuscular HGB Conc 33.7 g/dl (31.0-36.0); Mean Corpuscular Volume 92.1 fL (80.0-98.0); Mean Platelet Volume 10.4 fL (9.4-12.4); Monocytes Absolute Auto 0.8 X10*3/uL (0.1-1.2); Monocytes Percent Auto 11.8 % (2-11); Neutrophils Absolute Auto 3.3 x10*3/uL (2.0-8.3); Neutrophils Percent Auto 51.8 % (45-73); Platelet Count 265 X10*3/uL (160-400); White Blood Count 6.4 X10*3/uL (4.8-10.8)
[2024-08-12 13:42] LABS: Estimated Average Glucose 111 mg/dL; Hemoglobin A1c % 5.5 % (<6.0)
[2024-08-12 14:08] LABS: Vitamin B12 394 pg/mL (200-900)
[2024-08-12 14:16] LABS: Alanine Aminotransferase 32 U/L (0-40); Albumin Level 4.8 g/dL (3.5-5.0); Alkaline Phosphatase 66 U/L (39-117); Anion Gap 11 (12-20); Aspartate Amino Transferase 35 U/L (5-37); Bilirubin Direct 0.5 mg/dL (0.0-0.5); Bilirubin Total 1.7 mg/dL (0.0-1.0); Blood Urea Nitrogen 12 mg/dL (9-16); Calcium 9.4 mg/dL (8.4-10.2); Carbon Dioxide 29 mmol/L (22-29); Chloride 105 mmol/L (96-108); Cholesterol 132 mg/dL (<200); Estimated Glomerular Filt Rate > 60; Glucose Random 96 mg/dL (60-115); HDL Cholesterol 46 mg/dL (>40); LDL Cholesterol Calculated 72 mg/dL (<100); Potassium 4.2 mmol/L (3.3-5.1); Sodium 141 mmol/L (135-145); Total Protein 7.2 g/dL (6.5-8.0); Triglycerides 73 mg/dL (<150)
[2024-08-12 14:32] LABS: TSH reflex Free T4 1.58 uIU/mL (0.32-4.0)
== END 2024-08-12 10:41 | disposition home or self-care (01) ==
LOC: HO.10HDL 10:40
PROVIDERS: Visit Provider Physician Assistant
DX: Z00.00 Encounter for general adult medical examination without abnormal findings (principal); E78.5 Hyperlipidemia, unspecified; R20.2 Paresthesia of skin; M79.601 Pain in right arm; M79.602 Pain in left arm
CPT/HCPCS: 36415; 80048; 80061; 80076; 82607; 83036; 84443; 85025

== ENCOUNTER 2024-11-01 07:27 | Outpatient (REF) | payer BC, SELFPAY ==
--- NOTE | ~2024-11-01 | CT_ITS ---
EXAMINATION: CT CERVICAL SPINE WITHOUT CONTRAST CLINICAL INFORMATION: Other Cervical disc degeneration, unspecified cervical region. Cervical paresthesias bilateral upper extremities. COMPARISON: No prior CT. Cervical radiographs 07/12/2016. TECHNIQUE: Spiral CT imaging of the cervical spine performed in axial plane without contrast. Multiplanar reformatted images were constructed from the axial data set. This CT examination was performed using dose optimization techniques as appropriate, variously including the following: *Automated exposure control *Adjustment of mA and/or kV according to patient size (this includes techniques or standardized protocols for targeted exams where dose is matched to indication/reason for exam; i.e. extremities or head) *Use of iterative reconstruction technique FINDINGS: CORONAL ALIGNMENT: -Normal. SAGITTAL ALIGNMENT: -There is a normal lordosis. -There is a 2 mm degenerative retrolisthesis of C5 on C6. -Sagittal alignment is otherwise anatomic. C1-C2 AND CRANIOCERVICAL JUNCTION: -Intact and normally aligned. There are mild degenerative changes in the anterior atlantoaxial joint. VERTEBRAL BODIES AND FACETS: -There is no fracture, compression deformity, or suspicious bone lesion. -There is no evidence of traumatic subluxation. -There is normal facet alignment bilaterally. There are very mild multilevel degenerative facet changes bilaterally. -There is uncinate spurring right greater than left C5-6. This results in severe right and moderate left neural foraminal narrowing. There is moderate central canal narrowing. DISCS: -Severe disc degeneration C5-6 with disc vacuum phenomenon and disc osteophytic spurring. -Moderate disc degeneration at C6-7. -Mild disc degeneration at the other levels. CENTRAL CANAL: -No evidence of high-grade central canal narrowing or large disc herniation allowing for modality limitations. -There is moderate central canal narrowing at C5-6 secondary to dorsal disc osteophytic bulging. PREVERTEBRAL AND PARAVERTEBRAL SOFT TISSUES: -There is no prevertebral or paravertebral soft tissue swelling or abnormal fluid collection. -There are mild left carotid bulb calcifications. -The partially imaged thyroid is normal. LUNG APICES: -Clear bilaterally. CT/CT cervical spine wo IV con IMPRESSION: 1. No acute cervical abnormalities. 2. Spondylosis of the cervical spine relatively confined to C5-6. There is moderate central canal stenosis present at this level, with severe right and moderate left neural foraminal narrowing. Electronically signed by: Christian Rangel MD 11/01/2024 08:30 AM EDT
--- OUTSIDE RECORDS SUMMARY | 2024-11-01 07:30 | XMS_ITS | Clinical Summary ---
Author Organization [facility] Address [address] [address] Phone Care Team Providers Care Family Coach Name Role Phone Pcp, Unknown Primary Care Provider Unavailabl e Allergies No known active allergies Medications rosuvastatin (CRESTOR) 5 MG tablet Active Active Problems No known active problems Encounters Date Type Department Care Team Description 09/13/2024 9:00 AM EDT Occupational Health [facility] [address] [address] Stephanie Loo PA-C from Last 3 Months Social History Tobacco Use Types Packs/Day Years Used Date Smoking Tobacco: Never Assessed Education Answer Date Recorded Are you interested in more education? Not on jesse e 07/02/2022 Are you concerned about learning? Not on file 07/02/2022 No 07/02/2022 No 07/02/2022 Digital Access Answer Date Recorded No 07/31/2022 No 07/31/2022 Reliable internet access at home? Not on file 07/31/2022 Device with a working camera? Not on file Sex and Gender Information Value Date Recorded Sex Assigned at Not on file Legal Sex Male 11:02 AM EDT Gender Identity Not on file Sexual Orientation Not on file Last Filed Vital Signs Vital Sign Reading Time Taken Comments Blood Pressure 138/88 10/31/2023 9:43 AM EDT Pulse 72 10/31/2023 9:43 AM EDT Temperature 36.8 C (98.2 F) 10/31/2023 9:43 AM EDT Respiratory Rate 18 10/31/2023 9:43 AM EDT Oxygen Saturation 98% 10/31/2023 9:43 AM EDT Inhaled Oxygen Concentration - - Weight 87.5 kg (193 lb) 10/31/2023 9:43 AM EDT Height 185.4 cm (6' 1 ) 10/31/2023 9:43 AM EDT Body Mass Index 25.46 10/31/2023 9:43 AM EDT Plan of Treatment Health Maintenance Due Date Last Done Comments Adult Td,Tdap Booster 1961 LIPID PANEL 1961 DEPRESSION SCREENING 1973 SMOKING Hx and SMOKELESS TOBACCO SCREENING 1974 HEPATITIS C SCREENING 1979 HIV ONE-TIME SCREENING (18-65 YEARS) 1979 SCREENING FOR DIABETES 02/01/1996 COLOGUARD 2006 COLONOSCOPY 2006 COLORECTAL CANCER SCREENING 2006 FIT TEST 2006 FOBT 2006 SIGMOIDOSCOPY 2006 VIRTUAL COLONOSCOPY 2006 PNEUMOCOCCAL VACCINES (50+ years) (1 of 1 - PCV) 2011 RSV VACCINE (1 - 1-dose 75+ series) 02/01/2036 ZOSTER VACCINES Completed 04/21/2023, 12/23/2022 COVID-19 VACCINE Completed 12/28/2023, , 01/15/2022, Additional history exists HEPATITIS A VACCINES Aged Out No long er eligible based on patient's age to complete this topic HIB VACCINES Aged Out No longer eligi ble based on patient's age to complete this topic MENINGOCOCCAL VACCINES (ACWY) Aged Out No longer eligible based on patient's age to complete this topic MENINGOCOCCAL VACCINES (B) Aged Out N o longer eligible based on patient's age to complete this topic Medical Devices Not on file Insurance [employer] Care Teams Family Coach Relationship Specialty Start Date End Date Pcp, Unknown PCP - General 10/11/21 Additional Source Comments The information contained in this document represents components of the legal health record. It is not the complete legal health record.[facility]
--- OUTSIDE RECORDS SUMMARY | 2024-11-01 07:30 | XMS_ITS | Patient Health Record ---
Author Organization [facility] Address [address] [place] [address] Care Team Providers Care Assembler Lay Ups Name Role Phone Julia (RETIRED) Austin SANTIAGO Primary Care Provide r Unavailable Evin Rodarte Unavailable [phone] Allergies No Known Allergies Reason For Referral No Information Medications Medication SIG (Take, Route, Frequency, Duration) Notes Start Date End Date Status Rosuvastatin Calcium 5 MG Oral for 90 Active Vitamin D Active Turmeric Active Immunizations Vaccine Route Administration Date Status Comme nts Influenza Unknown 12/04/2021 Administered Social History Tobacco Use: Social History Observation Description Date Details (start date - stop date) Former Smoker NA - NA Tobacco Use/Smoking Question Answer Notes Patient is a former smoker How long has it been since you last smoked? > 10 years Alcohol Screen Question Answer Notes Did you have a drink contain ing alcohol in the past year? Yes How often did you have a dri nk containing alcohol in the past year? 2 to 3 times a week (3 points) How many drinks did you have on a typical day when you were drinking in the past year? 3 or 4 drinks (1 point) How often did you have 6 or more drinks on one occasion in the past year? Less than monthly (1 point) Points 5 Interpretation Positive Section Notes: Nonsmoker; couple of beers a day Nonsmoker; couple of beers a day Nonsmoker; couple of beers a day Problems Problem Type SNOMED Code ICD Code Onset Dates Problem Status W/U Status Risk Notes Problem 063418912 Colon cancer screening (Z12.11) Active confirmed Problem 060380070 History of adenomatous polyp of colon (Z86.010) Active confirmed Problem History of polyp of colon (situation) (625286033) Personal history of colonic polyps (Z86.010) Active confirmed Problem Diverticular disease of colon (006224568) Diverticulosis of large intestine without perforation or abscess without bleeding (K57.30) Active confirmed Problem 276081204024590 Preprocedural examination (Z01.818) Active confirmed Plan Of Treatment Future Test Test Name Order Date COLONOSCOPY 08/23/2011 COLONOSCOPY 10/25/2016 COLONOSCOPY 04/07/2022 Insurance Providers Payer Name Payer Address Payer Phone Subscriber Number Group Number Insured Name Patient Relationship to Insured Coverage Start Date Coverage End Date [facility] [address] [place], [place] [id number] MAYRA WEBB Self - patient is the insured Medical (General) History Medical History History ICD Code Denies NC,DM,CVA,Lung disease,renal dise ase Screening Colonoscopies in and 01/2017 with small tubular adenomas removed Hyperlipidemia Plantar fascitis Surgical History Surgery Date(Month/Year) Deviated septum 1992 Varicose veins
--- OUTSIDE RECORDS SUMMARY | 2024-11-01 07:30 | XMS_ITS | Patient Health Record ---
Author Organization [facility] Address [address] [place] [address] Care Team Providers Care Plastics Engineering Teacher Name Role Phone Austin Dumont MD Primary Care Provider Gabriel Gonzalez Unavailable [phone] Allergies No Known Allergies Reason For Referral No Information Medications Medication SIG (Take, Route, Frequency, Duration) Notes Start Date End Date Status Rosuvastatin Calcium 5 MG Oral; Duration: 90 Active Vitamin D 25 MCG (1000 UT) 1 tablet Orally Once a day; Duration: 30 day(s) Active Rosuvastatin Calcium 5 MG 1 tablet Orall y Once a day; Duration: 30 day(s) Active Vitamin D Not-Taking Social [...] Coverage Start Date Coverage End Date [facility] [address] [place] [address] [id number] Antoinette Alicea Spouse - patient is the spouse of the insured Medical (General) History Medical History History ICD Code Arthritis Chicken pox Surgical History Surgery Date(Month/Year) Hospitalization History Reason Date(Month/Year) C- xrays 06/26/20
== END 2024-11-01 07:28 | disposition home or self-care (01) ==
LOC: HO.CT 07:27
PROVIDERS: Visit Provider Physician Assistant
DX: M50.30 Other cervical disc degeneration, unspecified cervical region (principal); R20.2 Paresthesia of skin; M79.601 Pain in right arm; M79.602 Pain in left arm
CPT/HCPCS: 72125

== ENCOUNTER → 2024-11-01 07:29 | Outpatient (BNV) | payer BC, SELFPAY | PROVIDERS: Visit Provider Radiology Diagnostic Radiology | DX: M47.812 Spondylosis without myelopathy or radiculopathy, cervical region (principal); M48.02 Spinal stenosis, cervical region | CPT/HCPCS: 72125 ==